=== PATIENT | female | born 1990 | race African-American/Black ===

== ENCOUNTER 2018-03-29 14:23 | Emergency (ER) | payer MEDICAID ==
[~2018-03-29] VITALS: Ht 160 cm; Wt 97.5 kg
[2018-03-29 14:38] VITALS: BP 122/79
--- NOTE | 2018-03-29 14:46 | Emergency Room Report ---
History of Present Illness General Chief Complaint: Female Urogenital Problems Source: Patient Present Illness HPI 27-year-old female patient presents to ER complaining of burning with urination for the past few days. Reports symptoms began after going out drinking tonight and holding her urine overnight as opposed to using the restroom before she went to sleep. Denies fever, chest pain, shortness of breath, abdominal pain, back pain, flank pain, vomiting. Denies hematuria or foul smelling odor. Denies itchiness. Reports last menstrual period January. Reports sexual activity with her boyfriend, states she does not use protection, states she does not concern for sexually transmitted infection at this time. Denies rash. Complains of urgency during this time. Allergies: Coded Allergies: No Known Allergies (Unverified , 03/29/18) Patient History Past Medical History: see triage record Last Menstrual Period: 01/30/2018 Now: No : 4 Para: 1 Reviewed Nursing Documentation: PMH: Agreed; PSxH: Agreed Nursing Documentation-PMH Past Medical History: No Stated History Review of Systems All Other Systems: negative except mentioned in HPI Physical Exam Vital Signs Date Time Temp Pulse Resp B/P (MAP) Pulse Ox O2 Delivery O2 Flow Rate FiO2 03/29/18 14:30 98.0 63 18 122/79 96 Room Air 98.1 Sp02 EP Interpretation: reviewed, normal General Appearance: well appearing, no apparent distress, alert, GCS 15, non- toxic Head: normocephalic, atraumatic Eyes: bilateral eye normal inspection, bilateral eye PERRL ENT: hearing grossly normal, normal pharynx, no angioedema, normal voice, uvula midline, moist mucus membranes Neck: full range of motion Respiratory: lungs clear, normal breath sounds, no rhonchi, no respiratory distress, no accessory muscle use, no wheezing, speaking full sentences Cardiovascular #1: regular rate, rhythm, no edema Gastrointestinal: non tender, soft, no mass, non-distended, no guarding, no rebound Genitourinary: no CVA tenderness Musculoskeletal: back normal, digits/nails normal, gait/station normal, normal range of motion, non-tender Psychiatric: mood/affect normal Skin: no rash Medical Decision Making PA Attestation Dr. Keyes is my supervising Physician whom patient management has been discussed with. Diagnostic Impression: Primary Impression: Urinary tract infection ER Course Pt presents to ED c/o urinary symptoms. DDX considered but are not limited to cystitis, pyelonephritis, STI, vaginitis, . VITAL SIGNS are WNL, patient is afebrile. Ordered UA. ER COURSE UA results show leukocyte esterase, WBCs, bacteria, few epithelial cells, patient sx, indicate UTI, will treat with abx. Urine negative. Results discussed with patient. If concern for STI, followup with STI clinic for testing and treatment. Denies STI concern. Wear condoms during sex, avoid sexually activity for 2 weeks. Drink plenty of fluids. Patient is resting comfortably in chair, nontoxic appearing, in no acute distress. DISCHARGE -Rx provided for Keflex -Rx provided for Phenazopyridine for pain. SE turns urine orange. Patient is stable for discharge. Patient resting comfortably, in no acute distress, nontoxic appearing, talking without difficulty. Will provide with patient care instructions and any necessary prescriptions. Patient understands and agrees to treatment plan. Patient encouraged to drink plenty of fluids. Patient to take medication as instructed. Care plan and follow-up instructions provided. Patient questions asked and answered. Reports understanding and agreement to treatment plan. Patient instructed to follow-up with primary care provider in 3 - 5 days. ER precautions given. Patient instructed to return to ER immediately for any new or worsening of symptoms. Including but not limited to fever, abdominal pain , intractable vomiting. - Please note that this Emergency Department Report was dictated using [employer] set up operator technology software, occasionally this can lead to erroneous entry secondary to interpretation by the dictation equipment. Labs Test 03/29/18 14:51 Urine Color Pale yellow Urine Appearance Clear Urine pH 5 (4.5-8.0) Urine Specific Lena 1.015 (1.005-1.035) Urine Protein 1+ (NEGATIVE) Urine Glucose (UA) Negative (NEGATIVE) Urine Ketones Negative (NEGATIVE) Urine Occult Blood 2+ (NEGATIVE) Urine Nitrite Negative (NEGATIVE) Urine Bilirubin Negative (NEGATIVE) Urine Urobilinogen Normal MG/DL (0.0-1.0) Urine Leukocyte Esterase 3+ (NEGATIVE) Urine RBC 5-10 /HPF (0 - 2) Urine WBC 10-15 /HPF (0 - 2) Urine Squamous Epithelial Cells Few /LPF (NONE/OCC) Urine Bacteria Moderate /HPF (NONE) Urine HCG, Qualitative Negative (NEGATIVE) Last Vital Signs Date Time Temp Pulse Resp B/P (MAP) Pulse Ox O2 Delivery O2 Flow Rate FiO2 03/29/18 14:38 98.1 84 18 122/79 96 Room Air 98.1 Disposition: HOME, SELF-CARE Condition: Stable Scripts Phenazopyridine Hcl* (PYRIDIUM*) 100 Mg Tablet 100 MG ORAL THREE TIMES A DAY for 3 Days, #9 TAB Prov: Jorge Gupta 03/29/18 Cephalexin* (KEFLEX*) 500 Mg Capsule 500 MG ORAL EVERY 12 HOURS, #14 CAP 0 Refills Prov: Jorge Gupta 03/29/18 Patient Instructions: Urinary Tract Infection Additional Instructions: Followup with primary care provider and followup with and./or OBGYN. Drink plenty of fluids. If concern for STI, followup with STI clinic or PCP for further testing and treatment. Avoid sexual activity for 2 weeks, wear condoms during sex. Take medications as directed. Pyridium has SE of turning urine orange. Patient questions asked and answered. ER precautions given, patient instructed to return to ER immediately for any new or worsening of symptoms. Jorge Gupta Mar 29, 2018 14:46
[2018-03-29 15:24] LABS: APPEARANCE,URINE CLEAR; BILIRUBIN, URINE NEGATIVE (NEGATIVE); COLOR,URINE PALE YELLOW; GLUCOSE, URINE (UA) NEGATIVE (NEGATIVE); KETONES,URINE NEGATIVE (NEGATIVE); LEUKOCYTE ESTERASE ,URINE 3+ (NEGATIVE); NITRITE,URINE NEGATIVE (NEGATIVE); PH,URINE 5 (4.5-8.0); PROTEIN,URINE 1+ (NEGATIVE); UROBILINOGEN,URINE NORMAL MG/DL (0.0-1.0)
[2018-03-29] MEDS ORDERED: PHENAZOPYRIDIN100 MG ORAL (15:48)
[2018-03-29] MEDS ORDERED: CEPHALEXIN500 MG ORAL (15:48)
[2018-03-29 15:58] VITALS: BP_SYST 122; BP_SYST 129; BP_DIAS 79; BP_DIAS 82
== END 2018-03-29 16:00 | disposition home or self-care (01) ==
LOC: EMR 15:05
DX: N39.0 Urinary tract infection, site not specified (principal)
CPT/HCPCS: 81003; 81025; 87086; 87181; 99283